=== PATIENT | female | born 1990 | race Caucasian/White ===

== ENCOUNTER 2020-06-19 13:46 | Emergency (ER) | payer OTHER, SELFPAY ==
[2020-06-19 14:31] VITALS: BP 112/51; PULSE 81; RESP 17; TEMP 36.6; O2SAT 99; BMI 22.4
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
== END 2020-06-19 15:41 | disposition home or self-care (01) ==
PROVIDERS: Emergency Provider Internal Medicine; PCP Internal Medicine
DX: S20.211A Contusion of right front wall of thorax, initial encounter (principal); R07.81 Pleurodynia; R07.89 Other chest pain; X58.XXXA Exposure to other specified factors, initial encounter; Y93.9 Activity, unspecified; Y92.9 Unspecified place or not applicable; Y99.9 Unspecified external cause status
CPT/HCPCS: 71101; 99283

== ENCOUNTER 2021-11-23 13:27 | Outpatient (REF) | payer OTHER, SELFPAY | END 2021-11-23 13:28 | disposition home or self-care (01) | LOC: HO.LAB 13:27 | PROVIDERS: PCP Internal Medicine; Visit Provider Internal Medicine | DX: L60.0 Ingrowing nail (principal); N30.00 Acute cystitis without hematuria; R35.0 Frequency of micturition | CPT/HCPCS: 87086 ==

== ENCOUNTER 2022-03-08 06:52 | Emergency (ER) | payer OTHER, SELFPAY ==
[2022-03-08 06:57] VITALS: BP 107/56; PULSE 104; RESP 16; TEMP 37.1; O2SAT 99; BMI 22.4
[2022-03-08 07:17] LABS: COVID-19 Test Positive (Negative)
[2022-03-08 07:18] LABS: Strep A Nucleic Acid Negative (Negative)
--- NOTE | 2022-03-08 07:19 | ED_ITS ---
HPI - URI/Sore Throat General Chief Complaint: Upper Respiratory Symptoms Stated Complaint: sore throat & headache Time Seen by Provider: 03/08/22 07:11 Source: patient Mode of arrival: ambulatory Limitations: no limitations History of Present Illness MD elicited complaint: sore throat and rhinorrhea Onset (ago): day(s) (2) Consistency: constant Severity: moderate Description of mucous: clear Able to tolerate fluids by mouth: Yes Exacerbating factors: swallowing Relieving factors: nothing Context: sick contacts (works at SNF) Associated symptoms: headache and sore throat Treatments prior to arrival: acetaminophen Related Data Previous Rx's Medication Instructions Recorded ibuprofen 600 mg tablet 600 mg PO Q8H PRN pain #14 tabs 06/19/20 azithromycin 250 mg tablet See Rx Instructions PO .COMPLEX #6 03/08/22 tabs benzonatate 100 mg capsule 100 mg PO TID PRN cough #14 caps 03/08/22 ibuprofen 600 mg tablet 600 mg PO Q6H PRN pain #30 tabs 03/08/22 ondansetron 4 mg disintegrating 4 mg PO Q8H PRN nausea and 03/08/22 tablet vomiting #20 tabs Allergies Allergy/AdvReac Type Severity Reaction Status Date / Time No Known Allergies Allergy Verified 06/19/20 14:34 Review of Systems Review of Systems: Constitutional :no Fever, positive Chills, positive fatigue, positive Malaise ENT/Mouth : positive sore throat, positive runny nose Eyes: No Discharge Cardiovascular : No Chest Pain, No SOB Respiratory : pos Cough, No Sputum Gastrointestinal : No Nausea, No Vomiting, No Diarrhea Genitourinary : No Dysuria, No Urinary Frequency Musculoskeletal : no Myalgia Skin : No rash Neuro : No Headache PMFSH Past Medical History Attestation statement: The following information was validated with the patient. Medical History Asthma COVID-19 Social History Social History (Updated 03/08/22 @ 07:42 by Aimee Whiteside DO) Patient Tobacco Use Status: Never used Tobacco Advance Directives: No Advance Directives Information Provided: No Physical Exam Vital Signs: Vital Signs: Last Vital Signs Temp 98.8 F 03/08/22 06:57 Pulse 104 H 03/08/22 06:57 Resp 16 03/08/22 06:57 BP 107/56 L 03/08/22 06:57 Pulse Ox 99 03/08/22 06:57 O2 Del Method 03/08/22 06:57 BMI result Body Mass Index 22.4 Appearance: Alert. Oriented X3. No acute distress. Eyes: Pupils equal, round and reactive to light. ENT: Pharynx very red mild swelling no mass seen uvula midline, mild petechia noted Neck: Normal inspection. Neck supple. CVS: Normal heart rate and rhythm. Pulses normal. Respiratory: No respiratory distress. Breath sounds normal. Abdomen: Soft and nontender. Skin: Skin warm and dry. Normal skin color. Normal skin turgor. Extremities: No lower extremity edema. No calf ttp Neuro: Oriented X 3. No motor deficit. No sensory deficit. MDM - URI/Sore Throat MDM Narrative Medical decision making narrative: 31 y female with asthma vaccinated x 3, has had COVID prior to vaccines and did fine - she does not want treatments or paxlovid - given her throat I am going to start her on zpak, dose dexa and send home with precauations no hypoxia and no resp issues. has INH at home Lab Data Labs: Lab Results 03/08/22 03/08/22 Range/Units 07:02 07:02 COVID-19 (LORELEI) Positive A (Negative) COVID-19 Clin Com See Note S. pyogenes GrpA JOEL Negative (Negative) Discharge Plan Discharge Clinical Impression: COVID-19 Pharyngitis Qualifiers: Pharyngitis/tonsillitis etiology: other specified organisms Qualified Code(s): J02.8 - Acute pharyngitis due to other specified organisms Patient Disposition: Home, Self-Care Instructions: COVID-19 (Coronavirus Disease 2019) (ED), Pharyngitis (ED) Additional Instructions: return to ED for any worsening symptoms or concerns if you become so short of breath you cannot walk to your own bathroom please se ek medical care Prescriptions: New azithromycin 250 mg tablet See Rx Instructions .ROUTE .COMPLEX Qty: 6 0RF Rx Instructions: For 250 mg dose pack: take 500 mg today (day 1), then 250 mg for 4 days (days 2-5) ibuprofen 600 mg tablet 600 mg PO Q6H PRN (Reason: pain) Qty: 30 0RF ondansetron 4 mg tablet,disintegrating 4 mg PO Q8H PRN (Reason: nausea and vomiting) Qty: 20 0RF benzonatate 100 mg capsule 100 mg PO TID PRN (Reason: cough) Qty: 14 0RF No Action ibuprofen 600 mg tablet 600 mg PO Q8H PRN (Reason: pain) Qty: 14 0RF Stand Alone Forms: Work/School Release
[2022-03-08] MEDS: dexAMETHasone sod phosphate 10 MG/ML VIAL PO (07:59)
--- NOTE | 2022-03-08 08:11 | PC.NURSE ---
PT EVALUATED BY DR LANE. UPDATED ON RESULTS OF COVID TEST. PLAN IS FOR MEDICATION AND DISCHARGE HOME.
== END 2022-03-08 08:21 | disposition home or self-care (01) ==
PROVIDERS: Emergency Provider Emergency Medicine; PCP Internal Medicine
DX: U07.1 COVID-19 (principal); J02.8 Acute pharyngitis due to other specified organisms; R51.9 Headache, unspecified
CPT/HCPCS: 87635; 87651; 99282; 99283; J1100

== ENCOUNTER 2022-09-25 09:40 | Emergency (ER) | payer OTHER, SELFPAY ==
[2022-09-25 09:46] VITALS: BP 106/48; PULSE 72; RESP 16; TEMP 36.5; O2SAT 99; BMI 23.3
[2022-09-25 10:07] LABS: IDNOW Serial# 6674DD1D; Strep A Nucleic Acid Negative (Negative)
== END 2022-09-25 14:10 | disposition left against medical advice (07) ==
LOC: HO.ED 14:07
PROVIDERS: Emergency Provider Emergency Medicine; PCP Internal Medicine
DX: J02.9 Acute pharyngitis, unspecified (principal)
CPT/HCPCS: 36415; 87651; 99281; 99283

== ENCOUNTER 2023-02-19 10:59 | Outpatient (REF) | payer OTHER, SELFPAY ==
[2023-02-20 23:23] LABS: Rubeola IgG (Measles) >300.00 AU/mL
[2023-02-21 23:53] LABS: TS Negative Control Passed; TS Panel A 0; TS Panel B 0; TS Positive Control Passed; TSpotTB Negative (Negative)
== END 2023-02-19 11:00 | disposition home or self-care (01) ==
LOC: HO.10HDL 10:59
PROVIDERS: Visit Provider Internal Medicine
DX: Z00.00 Encounter for general adult medical examination without abnormal findings (principal); J45.909 Unspecified asthma, uncomplicated; N30.40 Irradiation cystitis without hematuria; Z11.1 Encounter for screening for respiratory tuberculosis
CPT/HCPCS: 36415; 86481; 86735; 86762; 86765; 86787

== ENCOUNTER 2023-05-27 07:34 | Emergency (ER) | payer OTHER, SELFPAY ==
[2023-05-27 07:39] VITALS: BP 112/51; PULSE 79; RESP 18; TEMP 36.8; O2SAT 99; BMI 22.6
--- NOTE | 2023-05-27 07:48 | ED_ITS ---
HPI - Dental/Oral General Chief complaint: Dental/Oral Stated complaint: Dental infection? Time Seen by Provider: 05/27/23 07:42 Source: patient Mode of arrival: ambulatory Limitations: no limitations History of Present Illness HPI Narrative: patient is a 32-year-old female who presents emergency department with reports of left lower dental pain to the molar. Reports a few weeks ago she had a dental procedure done, the following day part of the tooth (#18) cracked and chipped off. Over the past 2 days she has been experiencing increasing pain, swelling and redness to the gingiva surrounding it, and a foul taste to her mouth. She also endorses a sore throat for the past 3 days with associated nasal congestion, nonproductive cough. Denies known sick contacts. She denies fevers, chills, neck pain, chest pain, shortness of breath, difficulty breathing, difficulty swallowing. Related Data Previous Rx's Medication Instructions Recorded ibuprofen 600 mg tablet 600 mg PO Q8H PRN pain #14 tabs 06/19/20 azithromycin 250 mg tablet See Rx Instructions PO .COMPLEX #6 03/08/22 tabs benzonatate 100 mg capsule 100 mg PO TID PRN cough #14 caps 03/08/22 ibuprofen 600 mg tablet 600 mg PO Q6H PRN pain #30 tabs 03/08/22 ondansetron 4 mg disintegrating 4 mg PO Q8H PRN nausea and 03/08/22 tablet vomiting #20 tabs amoxicillin 875 mg-potassium 1 tab PO BID #14 tabs 05/27/23 clavulanate 125 mg tablet Allergies Allergy/AdvReac Type Severity Reaction Status Date / Time No Known Allergies Allergy Verified 05/27/23 07:39 Review of Systems Review of Systems: Yes all other systems are reviewed and are negative [facility] Past Medical History Attestation statement: The following information was validated with the patient. Source: old records reviewed Medical History Asthma COVID-19 Social History Social History (Updated 03/08/22 @ 07:42 by Aimee Whiteside DO) Patient Tobacco Use Status: Never used Tobacco Advance Directives: No Physical Exam Vital Signs: Vital Signs: Last Vital Signs Temp 98.2 F 05/27/23 07:39 Pulse 79 05/27/23 07:39 Resp 18 05/27/23 07:39 BP 112/51 L 05/27/23 07:39 Pulse Ox 99 05/27/23 07:39 O2 Del Method Room Air 05/27/23 07:39 BMI result Body Mass Index 22.6 Appearance: Alert. Oriented X3. No acute distress. Head: Normal external exam. Normocephalic. Atraumatic. Eyes: PERRLA. EOMI. Conjunctiva and sclera normal. Eyelids normal. ENT: EAC normal. TM's Normal. Pharynx erythematous Uvula midline. Moist mucous membranes.? ?No trismus noted.? No drooling noted.? No muffled voice noted. Dentition:? Patient with poor dentition throughout with multiple old fractured teeth with multiple dental caries.? Gingival Erythema.? No fluctuance.? Not co nsistent with peritonsillar abscess. Not consistent with dental abscess.? No salivary duct obstruction noted. Neck: Normal inspection. Neck supple. FROM. No adenopathy. Thyroid Normal. No meningeal signs. No neck mass noted.? Trachea midline. CVS: Normal heart rate and rhythm. Heart sound normal. No murmurs noted. Pulses normal throughout. Respiratory: No respiratory distress. Painless inspiration. Breath sounds normal. No wheezes/rales/rhonchi noted. Chest nontender. ?No accessory muscle usage noted or decreased air movement noted. Back:? Full range of motion noted. Skin: Skin warm and dry.? Normal skin color.? Normal skin turgor. No rashes/lesions/lacerations noted. Extremities: Extremities exhibit normal range of motion.? Extremities nontender. Neuro: Oriented X 3.? No motor deficit.? No sensory deficit.? Reflexes normal. Medications Administered Discontinued Medications Generic Name Dose Route Start Last Admin Trade Name Freq PRN Reason Stop Dose Admin Acetaminophen 975 mg 05/27/23 07:47 05/27/23 08:05 Acetaminophen 325 Mg Tablet PO 05/27/23 07:48 975 mg ONCE ONE Administration Medical Decision Making Medical Decision Making [facility] Narrative: patient is a 32-year-old female presenting to emergency department for evaluation of URI symptoms and dental pain as per HPI. Overall she is well- appearing, nontoxic, afebrile, no respiratory distress. Pharynx is erythematous without exudates or tonsillar hypertrophy, not consistent with peritonsillar or retropharyngeal abscess. She has poor dentition throughout, erythematous gingiva surrounding tooth #18, without fluctuance, not consistent with dental abscess. No trismus. No drooling. No evidence of salivary duct obstruction. She is tolerating oral intake. Obtain testing for COVID-19/influenza negative. testing for strep a negative. discussed plan of care for discharge home, sent prescription for antibiotic to patient's pharmacy, advised outpatient follow-up with her dental provider. We discussed worrisome signs and symptoms that would warrant re-evaluation in the emergency department. All questions answered. Stable for discharge. Differential Diagnosis Differential Diagnoses: The differential diagnosis associated with the presentation includes ( As noted above) Lab Data MDM Lab Attestation statement: I reviewed the patient's lab results. ( as noted above) Labs: Lab Results 05/27/23 Range/Units 08:12 COVID-19 (LORELEI) Negative (Negative) COVID-19 Clin Com See Note Influenza Type A (JOEL) Negative (Negative) Influenza Type B (JOEL) Negative (Negative) Influenza A & B Note See Note S. pyogenes GrpA JOEL Negative (Negative) Discharge Plan Discharge Clinical Impression: Dental caries Patient Disposition: Home, Self-Care Instructions: Toothache (ED), Mouth Care (ED) Prescriptions: New amoxicillin-pot clavulanate 875-125 mg tablet 1 tab PO BID Qty: 14 0RF No Action ibuprofen 600 mg tablet 600 mg PO Q8H PRN (Reason: pain) Qty: 14 0RF azithromycin 250 mg tablet See Rx Instructions .ROUTE .COMPLEX Qty: 6 0RF Rx Instructions: For 250 mg dose pack: take 500 mg today (day 1), then 250 mg for 4 days (days 2-5) ibuprofen 600 mg tablet 600 mg PO Q6H PRN (Reason: pain) Qty: 30 0RF ondansetron 4 mg tablet,disintegrating 4 mg PO Q8H PRN (Reason: nausea and vomiting) Qty: 20 0RF benzonatate 100 mg capsule 100 mg PO TID PRN (Reason: cough) Qty: 14 0RF Referrals: Ngozi Robert MD [Primary Care Provider] - Interventions: ED Discharge Assessment Last Done: 05/27/23 08:45 Discharge Date/Time: 05/27/23 08:46
--- OUTSIDE RECORDS SUMMARY | 2023-05-27 07:50 | XMS_ITS | Continuity of Care Document ---
Author Name Unknown Organization [facility] Address [address] [place] [id number]- Care Team Providers Care Licensed Audiologist Name Role Phone Ngozi Robert MD Primary Care Physician [phone] [place] [facility] [place] Date(s): 12/08/21 - 01/07/[address] [id number] Attending Physician: Lucia Reed Admitting Physician: Lucia Reed Referring Physician: Lucia Reed Allergies, Adverse Reactions, Alerts Substance Reaction Severity Status Apples Active Immunizations Given and Recorded Vaccine Date Status Refusal Reason tetanus/diphtheria/pertussis, acel(Tdap) 01/06/19 Given tetanus/diphtheria/pertussis, acel(Tdap) 12/31/13 Given Medications Nexplanon 68 mg subcutaneous implant 1 each = 68 mg, Subcutaneous Infusion, Once, 0 Refills, Maintenance, 09/01/19 11:41:00 EST Start Date: 09/01/19 Status: Ordered Problem List Condition Effective Dates Status Health Status Inform ant ADD - Attention deficit disorder(Confirmed) Active Anemia(Confirmed) Active Asthma(Confirmed) Active 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
--- OUTSIDE RECORDS SUMMARY | 2023-05-27 07:50 | XMS_ITS | Continuity of Care Document ---
Author Name Unknown Organization [facility] Address [address] [place] [id number]- Care Team Providers Care Maintenance Shop Laborer Name Role Phone Ngozi Robert MD Primary Care Physician [place] [facility] [place] [facility] [address] [address] Attending Physician: Lucia Reed Admitting Physician: [...] Date: 09/01/19 Status: Ordered Problem List Condition Confirmation Course Effective Dates Status Health St [facility] Informant ADD - Attention deficit disorder Confirmed Active Anemia Confirmed Active Asthma Confirmed Active Low grade squamous intraepith lesion on cytologic smear cervix (lgsil) Confirmed Active Chronic headaches Confirmed Active Nexplanon insertion Confirmed Active care and examination immediately after delivery Confirmed Active Social History Social History Type Response Smoking Status Never (less than 100 in lifetime); Tobacco user in household: Yes; Smokeless tobacco use: fob smokes mj; Other: fob; entered on: 08/21/18 Sex Patient Care team information Personnel Name: Ngozi Robert MD Address: Address: [address] [place] [address] [address] Ngozi Zamora ERIN [address]-
--- OUTSIDE RECORDS SUMMARY | 2023-05-27 07:50 | XMS_ITS | Continuity of Care Document ---
Author Name Unknown Organization [facility] Address [address] [place] [id number]- Care Team Providers Care Wooden Frame Builder Name Role Phone Yesica RUSSO, Ngozi Dominguez Primary Care Physician [phone] Encounter [facility] Date(s): 02/07/22 - 03/09/22 [facility] [address] [address]- Allergies, Adverse Reactions, Alerts Substance Reaction Severity [...]
--- OUTSIDE RECORDS SUMMARY | 2023-05-27 07:50 | XMS_ITS | Continuity of Care Document ---
Author Name Unknown Organization [facility] Address [address] [place] [address]- Care Team Providers Care Dry Heat Cabinet Attendant Name Role Phone Yesica RUSSO, Ngozi Dominguez Primary Care Physician [phone] Encounter [facility] [place] Date(s): 11/30/21 - 01/07/[address] [address] Attending Physician: Not on Staff, Attending MD Allergies, Adverse Reactions, Alerts Substance Reaction Severity [...]
--- OUTSIDE RECORDS SUMMARY | 2023-05-27 07:50 | XMS_ITS | Continuity of Care Document ---
Author Name Unknown Organization [facility] Address [address] [place] [phone]- Care Team Providers Care Public Safety Teacher Name Role Phone Ngozi Robert MD Primary Care Physician Encounter [facility] Date(s): 09/01/19 - 09/11/[address] [address]- [facility] Attending Physician: Lucia Reed Admitting Physician: Lucia [...]
--- OUTSIDE RECORDS SUMMARY | 2023-05-27 07:50 | XMS_ITS | Continuity of Care Document ---
Author Name Unknown Organization [facility] Address [address] [place] [id number]- Care Team Providers Care Service Learning Coordinator Name Role Phone Ngozi Robert MD Primary Care Physician Encounter [facility] Date(s): 11/20/19 - 12/20/[address] [address]- [facility] Attending Physician: Lucia Reed Admitting Physician: Lucia [...]
[2023-05-27] MEDS: Acetaminophen 325 MG TABLET 975 MG PO (08:05)
[2023-05-27 08:26] LABS: IDNOW Serial# 08D9AD1C; Strep A Nucleic Acid Negative (Negative)
[2023-05-27 08:30] LABS: COVID-19 Test Negative (Negative); IDNOW Serial# BCCEAD1C
[2023-05-27 08:33] LABS: IDNOW Serial# 9DB6401D; Influenza A Negative (Negative); Influenza B2 Negative (Negative)
--- NOTE | 2023-05-27 08:44 | PC.NURSE ---
Pt in agreement with d/c plans to follow up with dentist, and pain control. verbalized instructions on when to come back to ED
== END 2023-05-27 08:46 | disposition home or self-care (01) ==
PROVIDERS: Nurse Practitioner Family; Emergency Provider Emergency Medicine; PCP Internal Medicine
DX: K02.9 Dental caries, unspecified (principal); K08.89 Other specified disorders of teeth and supporting structures; Z11.52 Encounter for screening for COVID-19; J02.9 Acute pharyngitis, unspecified
CPT/HCPCS: 87502; 87635; 87651; 99283; 99284

== ENCOUNTER 2023-07-04 11:34 | Outpatient (REF) | payer OTHER, SELFPAY ==
[2023-07-05 08:05] LABS: HBS Num1 66.43 mIU/mL (0-7.99); ~Hepatitis B Surface Antibody REACTIVE (Nonreactive)
== END 2023-07-04 11:35 | disposition home or self-care (01) ==
LOC: HO.10HDL 11:34
PROVIDERS: Visit Provider Internal Medicine
DX: Z11.59 Encounter for screening for other viral diseases (principal)
CPT/HCPCS: 36415; 86706

== ENCOUNTER 2023-11-27 13:30 | Outpatient (AMB) | payer OTHER, SELFPAY ==
--- NOTE | 2023-11-27 13:34 | MHC.OFFVIS ---
Vital Signs 11/27/23 13:42 Height 5 ft 5 in Weight 141 lb BMI 23.5 BP 114/53 L Blood Pressure Location Rt brachial Position Sitting Pulse 71 Intake Visit Reasons: Rt thigh PST skin lesion Intake Note: Patient referred by PCP Dr. Robert for skin lesion on Rt post thigh. Present for yrs. Patient c/o: changes in size. Gets swollen and then it subsides. Agent Licensing Clerk Required: No Accompanied by: Self / Same As Patient Allergies No Known Allergies Allergy (Verified 11/27/23 13:40) HPI Comments Details: Patient presents with a symptomatic right posterior buttocks cyst/mass. She has had this several years time. It is increasing in size, becoming more symptomatic. She would like to have it excised. She has no such lesions elsewhere. Chart was reviewed and patient evaluated [facility] Medical History Asthma COVID-19 Social History Patient Tobacco Use Status: Never used Tobacco Physical Exam Vital Signs: Last Vital Signs Pulse 71 11/27/23 13:42 BP 114/53 L 11/27/23 13:42 BMI result Body Mass Index 23.5 Skin Other: Proximally 2 x 2 cm cyst type mass involving the right buttock area. Assessment & Plan Assessment & Plan (1) Subcutaneous mass: Code(s): R22.9 - Localized swelling, mass and lump, unspecified Category: Surgical Plan Patient would like to have this excised but can not do it today because of other obligations. Current plan is to arrange for office excision on the day which is convenient for her. Arrangements were made for this. All questions answered. Medications: Discontinued azithromycin Discontinued Reason: Patient Completed Course For 250 mg dose pack: take 500 mg today (day 1), then 250 mg for 4 days (days 2-5) 6 tabs 0RF amoxicillin-pot clavulanate 875-125 mg Discontinued Reason: Patient Completed Course 1 tab PO BID 14 tabs 0RF Coding Level of Care Code New Pt Level 4 (38441) Diagnoses Subcutaneous mass R22.9
[2023-11-27 13:42] VITALS: BP 114/53; PULSE 71; BMI 23.5
== END 2023-11-27 13:52 | disposition home or self-care (01) ==
PROVIDERS: PCP Internal Medicine; Referring Provider Internal Medicine; Visit Provider Surgery
DX: R22.9 Localized swelling, mass and lump, unspecified (principal)
CPT/HCPCS: 99204

== ENCOUNTER → 2023-11-27 13:30 | Outpatient (BNVA) | payer OTHER, SELFPAY | PROVIDERS: PCP Internal Medicine; Referring Provider Internal Medicine; Visit Provider Surgery | DX: R22.41 Localized swelling, mass and lump, right lower limb (principal) | CPT/HCPCS: 99202 ==

== ENCOUNTER 2023-12-18 14:11 | Outpatient (AMB) | payer OTHER, SELFPAY ==
--- NOTE | 2023-12-18 14:23 | MHC.OFFVIS ---
Vital Signs 12/18/23 14:24 Height 5 ft 5 in Weight 137 lb BMI 22.8 BP 115/63 Blood Pressure Location Rt brachial Position Sitting Pulse 68 Intake Visit Reasons: Rt thigh PST skin lesion excision Intake Note: Patient here for excision of lipoma on Rt post thigh. Corporate Tutor Required: No Accompanied by: miky Corona Allergies No Known Allergies Allergy (Verified 12/18/23 14:23) Medication List - Last Reconciled 12/18/23 by Artis Pascal MD benzonatate 100 mg PO TID PRN ibuprofen 600 mg PO Q8H PRN ibuprofen 600 mg PO Q6H PRN ondansetron 4 mg PO Q8H PRN HPI Comments Details: Patient, who is here with her mother, presents for excision of a right upper posterior thigh exophytic growth measuring approximately 2 x 2 cm. Risks, benefits, alternatives of procedure reviewed the patient and included but not limited to bleeding, infection, recurrence, numbness, pain, scarring the patient wished to proceed. Consent signed. PFSH Medical History Asthma COVID-19 Social History Patient Tobacco Use Status: Never used Tobacco Physical Exam Vital Signs: Last Vital Signs Pulse 68 12/18/23 14:24 BP 115/63 12/18/23 14:24 BMI result Body Mass Index 22.8 Office Procedures Excision Details: After appropriate positioning, patient underwent 1% a cane and Betadine prep and uneventful tangential excision of the 2 x 1 cm exophytic growth of the right upper posterior thigh. Wound base was cauterized with silver nitrate followed by bacitracin and the patient tolerated procedure well. 85022-bobnr/arms/legs 1.1-2cm Procedure code (CPT) selection complete Office Meds lidocaine 1 %-epinephrine 1:100,000 injection solution Performing Provider: Artis Pascal MD Performing Location: [facility] [place] [facility] Administered by: Artis Pascal MD on 12/18/23 14:43 Dose Route Admin Location Dispensed Lot Number Expiration Date ND [employer] Cash[employer] 8 mL Infiltration 8 mL Assessment & Plan Assessment & Plan (1) Subcutaneous mass: Code(s): R22.9 - Localized swelling, mass and lump, unspecified Category: Surgical Plan: Patient has been given local wound instructions including bacitracin each day, may shower starting tomorrow, no strenuous activities and will see me as directed or p.r.n.. All questions answered. Orders: Orders AMB Excision Today R22.9 - Localized swelling, mass and lump, unspecified Surgical Today R22.9 - Localized swelling, mass and lump, unspecified Medications: New lidocaine-epinephrine 1 %-1:100,000 8 mL Infiltration ONCE 30 mL 0RF R22.9 - Localized swelling, mass and lump, unspecified Coding Level of Care Code Est Pt Level 5 (38625) Diagnoses Subcutaneous mass R22.9 CPT Codes Trunk/Arms/Legs - CPT: 68959-hyhxt/arms/legs 1.1-2cm ([id number])
[2023-12-18 14:24] VITALS: BP 115/63; PULSE 68; BMI 22.8
== END 2023-12-18 14:46 | disposition home or self-care (01) ==
PROVIDERS: PCP Internal Medicine; Visit Provider Surgery
DX: D17.23 Benign lipomatous neoplasm of skin and subcutaneous tissue of right leg (principal)
CPT/HCPCS: 11301

== ENCOUNTER 2023-12-18 14:11 | Outpatient (REF) | payer OTHER, SELFPAY | END 2023-12-18 14:12 | disposition home or self-care (01) | LOC: HO.LNP 14:11 | PROVIDERS: PCP Internal Medicine; Visit Provider Surgery | DX: R22.9 Localized swelling, mass and lump, unspecified (principal) | CPT/HCPCS: 11301; 88304; 88305 ==

== ENCOUNTER 2023-12-25 13:47 | Outpatient (AMB) | payer OTHER, SELFPAY ==
--- NOTE | 2023-12-25 13:55 | A.OFFVIS_ITS ---
Intake Visit Reasons: S/P exc Rt post thigh Intake Note: Patient here s/p exc on Rt post thigh. Reports incision healing well. Patient c/o: bruising. 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 Wound check. Pathology is benign. PFSH Medical History Asthma COVID-19 Social History Patient Tobacco Use Status: Never used Tobacco Physical Exam Extrem Other: Upper posterior thigh wound is healing uneventfully. Granulating well. No evidence of any infection Assessment & Plan Assessment & Plan (1) Postop check: Code(s): Z09 - Encounter for follow-up examination after completed treatment for conditions other than malignant neoplasm Category: Surgical Plan Patient is continue local wound care and dressing changes and will otherwise follow-up p.r.n.. All questions answered. Coding Level of Care Code Global (46851) Diagnoses Postop check Z09
== END 2023-12-25 13:58 | disposition home or self-care (01) ==
PROVIDERS: PCP Internal Medicine; Visit Provider Surgery
DX: Z09 Encounter for follow-up examination after completed treatment for conditions other than malignant neoplasm (principal)
CPT/HCPCS: 99212

== ENCOUNTER → 2023-12-25 13:47 | Outpatient (BNVA) | payer OTHER, SELFPAY | PROVIDERS: PCP Internal Medicine; Visit Provider Surgery | DX: Z09 Encounter for follow-up examination after completed treatment for conditions other than malignant neoplasm (principal) | CPT/HCPCS: 99212 ==

== ENCOUNTER 2024-04-01 09:36 | Emergency (ER) | payer OTHER, SELFPAY ==
--- NOTE | ~2024-04-01 | XR_ITS ---
EXAMINATION: XR CHEST CLINICAL INFORMATION: Pain following injury. COMPARISON: Most recent rib radiographs dated 06/19/2020. TECHNIQUE: 2 views of the chest were obtained. FINDINGS: The lungs are clear. The cardiomediastinal silhouette is normal in size. There is no pleural effusion or pneumothorax. No acute osseous abnormality. XR/XR chest 2V IMPRESSION: No acute cardiopulmonary findings. Electronically signed by: Rodriguez Coombs MD 04/01/2024 12:18 PM EDT
--- NOTE | ~2024-04-01 | XR_ITS ---
EXAMINATION: XR RIBS, RIGHT CLINICAL INFORMATION: Rib pain following injury. COMPARISON: Right rib radiographs dated 06/19/2020. TECHNIQUE: 3 views of the right ribs were obtained. FINDINGS: No displaced fracture. No concerning lytic or blastic osseous lesion. No abnormal soft tissue calcification. XR/XR ribs RT 2V IMPRESSION: No displaced fracture. Electronically signed by: Rodriguez Coombs MD 04/01/2024 12:17 PM EDT
[2024-04-01 10:53] VITALS: BP 119/64; PULSE 71; RESP 20; TEMP 36.8; O2SAT 100; BMI 22.7
[2024-04-01] MEDS: Lidocaine 4 % Patch ADH..PATCH 1 PATCH TRANSDERMA (11:50)
[2024-04-01] MEDS: oxyCODONE HCl Immed Release 5 MG TABLET PO (11:50)
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
[2024-04-01 13:27] VITALS: BP 119/64; PULSE 71; RESP 20; TEMP 36.8; O2SAT 100
== END 2024-04-01 13:28 | disposition home or self-care (01) ==
PROVIDERS: Emergency Provider Emergency Medicine Emergency Medical Services; PCP Internal Medicine
DX: S20.211A Contusion of right front wall of thorax, initial encounter (principal); X50.9XXA Other and unspecified overexertion or strenuous movements or postures, initial encounter; J45.909 Unspecified asthma, uncomplicated; Y93.I1 Activity, roller coaster riding; Y92.831 Amusement park as the place of occurrence of the external cause; Y99.9 Unspecified external cause status
CPT/HCPCS: 71046; 71100; 99283